=== PATIENT | male | born 1995 | race Caucasian/White ===

== ENCOUNTER 2019-07-25 11:23 | Emergency (ER) | payer MEDICAID ==
[~2019-07-25] VITALS: Ht 177.8 cm; Wt 52.2 kg
--- NOTE | 2019-07-25 11:53 | NUR ---
PATIENT IN A HOSPITAL GOWN, POSSESSIONS OUT OF PATIENT AREA IN SECURE SPACE. SHARPS AND OTHER POTENTIAL HAZARDS AWAY FROM PATIENT. WILL HAVE SITTER/OBSERVER AT BEDSIDE.
--- NOTE | 2019-07-25 12:10 | NUR ---
SITTER/OBSERVER AT BEDSIDE.
[2019-07-25 12:42] LABS: BASOPHILS % (AUTO) 0.2 % (0.0-2.0); EOSINOPHILS # (AUTO) 0.6 K/uL (0.0-0.7); EOSINOPHILS % (AUTO) 6.6 % (0.0-7.0); HEMATOCRIT 38.5 % (36.7-47.1); HEMOGLOBIN 13.3 g/dL (12.5-16.3); LYMPHOCYTES # (AUTO) 1.9 K/uL (20.0-40.0); LYMPHOCYTES % (AUTO) 21.6 % (20.5-51.5); MEAN CORPUSCULAR HEMOGLOBIN 29.8 uug (23.8-33.4); MEAN CORPUSCULAR HGB CONC 35 g/dL (32.5-36.3); MONOCYTES # (AUTO) 0.8 K/uL (2.0-10.0); MONOCYTES % (AUTO) 9.4 % (0.0-11.0); NEUTROPHILS # (AUTO) 5.5 K/uL (1.8-8.9); NEUTROPHILS % (AUTO) 62.2 % (38.5-71.5); PLATELET COUNT (AUTO) 266 K/uL (152-348); RED BLOOD CELL COUNT(AUTO) 4.47 MIL/uL (4.06-5.63); WHITE BLOOD COUNT (AUTO) 8.9 K/uL (3.6-10.2)
[2019-07-25 12:49] LABS: CARBON DIOXIDE 23 mmol/L (21-32); CHLORIDE 107 mmol/L (98-107); CREATININE 0.9 mg/dL (0.6-1.3); GLUCOSE 127 mg/dL (74-106); POTASSIUM 3.6 mmol/L (3.5-5.1); UREA NITROGEN, BLOOD 35 mg/dL (7-18)
[2019-07-25 13:00] LABS: ETHANOL < 3 MG/DL (0-0)
[2019-07-25 13:02] LABS: ACETAMINOPHEN < 2.0 ug/mL (10-30); ALANINE AMINOTRANSFERASE 21 U/L (16-63); ALKALINE PHOSPHATASE 87 U/L (50-136); ASPARTATE AMINOTRANSFERASE 23 U/L (15-37); BILIRUBIN,DIRECT 0.1 mg/dL (0.0-0.2); BILIRUBIN,TOTAL 0.5 mg/dL (0.2-1.0); TOTAL PROTEIN, SERUM 6.6 g/dL (6.4-8.2)
--- NOTE | 2019-07-25 13:16 | NUR ---
PT MEDICALLY CLEARED. CALLED HENOK MACKEY FOR PSYCH EVAL PER MD REQUEST. HENOK MACKEY REQUESTED TO CALL THE [employer]IG[employer] TO ARRANGE FOR TRANSFER ON VOLUNTARY BASIS. CALLED [employer] [employer] AND LEFT A MESSAGE.
--- NOTE | 2019-07-25 14:13 | NUR ---
Pediatric Nephrologist Consultation: 1:50pm: SW arrived to the ED for consultation. SW met with the patient, who was in his assigned ED bed, with sitter bedside. Patient is a 24 year old male. Patient is observed to be sleepy and lethargic. SW attempted to generated a conversation with the patient, however patient has difficulty keeping his eyes open. Patient speech is low and mumbling, difficult to hear and understand. After a couple of attempts by SW to obtain information from the patient for the reason of his visit to the ED, patient responded "I came strictly for curiosity". Per physician's notes, patient stated that he is homeless, suffers from schizophrenia, and he tried to hang himself from a tree earlier today, however patient's friend cut him down from the tree. SW asked patient about his suicidal attempt, and at this time patient provided SW with the same information, stating he tried to hang himself from a tree and that his friend cut him down. SW tried to gather additional history from the patient, however patient continued to dose off, mumbling "nothing else matters". SW asked patient if he was receptive to voluntary psychiatric hospitalization, and patient expressed agreement. SW asked if there were any family or friends that SW could call for the patient, and patient responded in a loud voice, "no". SW tried to gather history from patient regarding substance use, living arrangements, and past and present psychiatric care, however patient once again dosed off and was not able to engage any further in this interview. SW gathered additional information from patient's medical record, which lists a hx of suicidal attempt at the age of 14, and use of meth, cannabis, and alcohol. No further information gathered. 2:05pm: REJI called [facility] [phone] and spoke with Deedee in Intake. Deedee asked for REJI to fax patient's medical records and face sheet to them for review. REJI faxed the requested information to Deedee at [phone]. Awaiting response back from [facility].
--- NOTE | 2019-07-25 14:56 | NUR ---
PATIENT SITTING UP DRINKING JUICE. FABIENNE SENT TO LAB... Addendum: 07/25/19 at 1458 by KEIKO URINE
[2019-07-25 15:18] LABS: *BILIRUBIN,URIN NEGATIVE (NEGATIVE); *BLOOD, URINE NEGATIVE (NEGATIVE); *CLARITY,URINE CLEAR (CLEAR); *COLOR,URINE YELLOW (YELLOW); *KETONES,URINE NEGATIVE (NEGATIVE); *UROBILINOGEN,URINE 0.2 E.U./dl (NORMAL); LEUKOCYTE ESTERASE ,URINE NEGATIVE (NEGATIVE); NITRITE, URINE NEGATIVE (NEGATIVE); UGLUCOSE NEGATIVE (NEGATIVE)
--- NOTE | 2019-07-25 15:23 | NUR ---
3:18pm: REJI called [facility] [phone] to follow-up on the patient's referral faxed earlier (see previous SS notes). REJI spoke with Tarun, who confirmed receipt of the referral packet. Tarun stated that he will be submitted the referral for review to their [place] and [place] locations to see which one has bed availability. Tarun stated that he will contact REJI as soon as he hears back from either location. REJI provided Tarun with this REJI's work cell phone number and the phone number to the ED.
[2019-07-25 15:32] LABS: *AMPHETAMINE, URINE POSITIVE (NEGATIVE); *BARBITURATE, URINE NEGATIVE (NEGATIVE); *CANNABINOID, URINE POSITIVE (NEGATIVE); *COCCAINE, URINE NEGATIVE (NEGATIVE); *OPIATE, URINE NEGATIVE (NEGATIVE); *PHENCYCLIDINE SCREEN,URINE NEGATIVE (NEGATIVE)
--- NOTE | 2019-07-25 16:25 | NUR ---
AWAITING FOR PLACEMENT... PATIENT IS SITTING UP EATING A SANDWICH AND DRINKING JUICE
--- NOTE | 2019-07-25 16:47 | NUR ---
4:30pm: REJI called [facility] [phone] to follow-up on status of referral. REJI spoke with Tarun again, who stated he has been in contact with their [place] location and that [facility] is working on possible admission on patient. Tarun stated that he will continue to follow-up with both [facility] and [facility] to see which one will be able to admit the patient, and will call this SW or ED department back as soon as he has a response.
--- NOTE | 2019-07-25 16:48 | NUR ---
PER [facility], THEY ARE REVIEWING STATUS AND WILL LET US KNOW IF THEY CAN TAKE HIM....
--- NOTE | 2019-07-25 17:37 | NUR ---
PER ESTRELLA AT [facility], THEY ARE STILL REVIEWING AND PREPARING FOR ADMISSION
--- NOTE | 2019-07-25 18:55 | NUR ---
ESTERLLA CALLED BACK. ACCEPTED THE PT TO [facility] [place] [facility]. REPORT [phone]
[2019-07-25] MEDS ORDERED: QUETIAPINE FUMARATE 25 MG TABLET PO ONE (19:00)
[2019-07-25] MEDS ORDERED: QUETIAPINE FUMARATE 25 MG TABLET ONE (19:02)
--- NOTE | 2019-07-25 19:23 | NUR ---
HAND OFF REPORT GIVEN TO JORDYN KEN
--- NOTE | 2019-07-25 19:25 | NUR ---
CALLED [facility] ETA IS [phone]. TRIP #[id number]
--- NOTE | 2019-07-25 19:35 | NUR ---
1:1 sitter at bedside for suicidal precautions. Safe environment implemented.
--- NOTE | 2019-07-25 20:12 | NUR ---
Report given to Lynne KEN from [facility]. [facility] unit [id number] here to transfer pt. Pt transferred in stable condition with all belongings.
== END 2019-07-25 20:17 | disposition short-term general hospital (02) ==
LOC: ER 11:23
DX: T14.91XA Suicide attempt, initial encounter (principal); F20.9 Schizophrenia, unspecified; F31.9 Bipolar disorder, unspecified; F10.10 Alcohol abuse, uncomplicated; F12.10 Cannabis abuse, uncomplicated; Z88.0 Allergy status to penicillin; Z88.1 Allergy status to other antibiotic agents; Z88.5 Allergy status to narcotic agent; Z59.0 Homelessness; X83.8XXA Intentional self-harm by other specified means, initial encounter; Y93.89 Activity, other specified; Y92.89 Other specified places as the place of occurrence of the external cause; Y99.8 Other external cause status
CPT/HCPCS: 36415; 72040; 80048; 80076; 80307; 81001; 85025; 93005; 99285; G0480 ×2; G0481; A4663